=== PATIENT | female | born 1965 | race Caucasian/White ===

== ENCOUNTER 2016-08-30 16:06 | Inpatient (IN) | payer MEDICARE ==
--- NOTE | ~2016-08-30 | EKG ---
PATIENT: MIKE LOU UNIT #: [id number] Ventricular Rate: 73 BPM Atrial Rate: 73 BPM P-R Interval: 160 ms QRS Duration: 100 ms Q-T Interval: 396 ms QTC Calculation(Bezet): 436 ms P Durham: 49 degrees Calculated R Durham: 87 degrees Calculated T Durham: 37 degrees Diagnosis Line: Normal sinus rhythm Diagnosis Line: Normal ECG Diagnosis Line: When compared with ECG of 03-AUG-2013 01:37, Diagnosis Line: No significant change was found Diagnosis Line: Confirmed by DION CHOUDHURY MD ([id number]) on 08/31/2016 Diagnosis Line: 8:01:45 PM INTERPRETING MD: MACEY PETER
--- NOTE | ~2016-08-30 | CT57 ---
[facility] A Service of [facility] RADIOLOGY TEXT RESULTS PATIENT: MIKE LOU LOCATION: [facility] 5711-18 : 66 UNIT #: [id number] AGE: [address]: Dariusz Torres MD SEX: F ORDER DR: [id number] [facility] [address] [facility]. [place], [place] [address] [id number] I MR#: [id number] #: [id number] NAME: MIKE LOU : 1965 SEX: F STUDY DATE/TIME: 08/31/2016 17:29 UNIT: [facility] ROOM: [facility] STUDY DESCRIPTION: CT Chest Wo Cont Attending Physician: Dariusz Torres M.D. Referring Physician: Dariusz Torres M.D. Ordering Physician: Dariusz Torres M.D. Primary Care Physician: Hilario Cintron M.D. MEDICAL IMAGING REPORT This report is preliminary unless electronic signature is present EXAM CT chest without contrast HISTORY 51-year-old female, shortness of air, dyspnea, hemoptysis. History of COPD. COMPARISON CT chest without contrast 08/27/2014 TECHNIQUE Axial images performed through the chest without contrast. Multiplanar reconstructed images were reviewed at a workstation. This CT exam was performed with one or more of the following radiation dose reduction techniques: automatic exposure control, adjustment of mA and/or kV according to patient size, and iterative reconstruction. FINDINGS The pulmonary parenchyma is normal. No effusions. Incidentally noted is an azygos lobe and azygos fissure. Calcified mediastinal nodes compatible with prior granulomas disease. Heart, aorta and pulmonary vessels unremarkable in this unenhanced study. Diffuse fatty infiltration of the liver. Osseous structures thoracic inlet unremarkable. Generalized obesity. IMPRESSION 1. No acute intrathoracic abnormality identified. 2. Diffuse fatty infiltration of the liver. 3. Incidental azygos lobe. Dictated by.Carlie Arias M.D. [facility] A Service of [facility] RADIOLOGY TEXT RESULTS PATIENT: MIKE LOU LOCATION: [facility] 5711-18 : 66 UNIT #: [id number] AGE: [address]: Dariusz Torres MD SEX: F ORDER DR: THIS IS AN ELECTRONICALLY VERIFIED REPORT Nikkie Arias M.D. at 09/01/2016 6:36 PM WENDIE/chip TD: 08/31/2016 22:13 JOB #: [id number] MEDICAL IMAGING REPORT Page 1 of 1 COPY
--- NOTE | ~2016-08-30 | CO ---
Unit #: [id number] #: [id number] Patient: MIKE LOU [id number] [address] [place], [place] [address] [id number] I MR#: [id number] NAME: MIKE LOU ROOM: 577 Age: 51 Sex: F Admission Date: 08/30/2016 : 1965 Attending Physician: Dariusz Torres M.D. Primary Care Physician: Hilario Cintron M.D. Consultation Date: 08/31/2016 CONSULTATION REPORT REASON FOR CONSULTATION Uncontrolled type 2 diabetes mellitus complicated with steroids. HISTORY OF PRESENT ILLNESS This is a 51-year-old female with history of COPD, chronic respiratory failure, history of tobacco use, has been admitted with the acute respiratory failure. Due to the COPD exacerbation, the patient has been treated with the IV steroids. Her blood sugars at some point were about 700 mg/dL or above 700. I have been asked to see the patient for further management. Note, the patient is insulin dependent. PAST MEDICAL HISTORY Chronic respiratory failure, COPD, depression, hypertension, hyperlipidemia, PTSD, obstructive sleep apnea. The patient uses BiPAP. MEDICATIONS List is reviewed. The patient was on Humalog 30 units in the morning plus sliding scale and Lantus 140 units daily, Januvia 100 mg daily. ALLERGIES To oxycodone, which caused her itching. SOCIAL HISTORY She smokes about half pack per day. Lives at home. FAMILY HISTORY COPD. REVIEW OF SYSTEMS A 12-point review of systems remarkable for shortness of air, wheezing, cough. Rest of the review of system is unremarkable. PHYSICAL EXAMINATION GENERAL: She is awake, alert, oriented to time, place, and person. She is mildly short of air. VITAL SIGNS: Temperature 98, pulse is 76, respirations 18, blood pressure 95/40. HEENT: EOMI. Pupils equally reactive to light. NECK: Supple. No thyromegaly noted. CHEST: Decreased air entry with bilateral wheezing. CVS: Regular rhythm. S1, S2. ABDOMEN: Soft, nontender. Bowel sounds positive. EXTREMITIES: No ulcers are noted. Unit #: [id number] #: [id number] Patient: MIKE LOU DIAGNOSTIC STUDIES LABORATORY RESULTS: Blood glucose log was reviewed. It has been running above 500 mg/dL. Labs are reviewed. ASSESSMENT 1. Type 2 diabetes mellitus with acute hyperglycemia secondary to the IV steroids. 2. Acute on chronic respiratory failure. 3. Morbid obesity. PLAN We will discontinue Levemir insulin and start the patient on Humulin N 80 units before each meal, Solu-Medrol dose. Start NovoLog 25 units each meal plus high dose supplement sliding scale. Accu-Cheks a.c. and h.s. Limit carbs to 45 per meal. Continue to follow for further management. Dictated by... Justine Capps/tae TD: 09/02/2016 05:12 JOB #: [id number] CONSULTATION REPORT Page 1 of 1 X Domingo Kelley MD X CONSULTATION REPORT
--- NOTE | ~2016-08-30 | CR72 ---
[facility] A Service of [facility] RADIOLOGY TEXT RESULTS PATIENT: MIKE LOU LOCATION: [facility] 577-01 : 66 UNIT #: [id number] AGE: [address]: Dariusz Torres MD SEX: F ORDER DR: [id number] [facility] [address]. [place], [place] [address] [id number] E MR#: [id number] Acc #: [id number] NAME: MIKE LOU : 1965 SEX: F STUDY DATE/TIME: 08/30/2016 15:39 UNIT: LULA ROOM: STUDY DESCRIPTION: CR Chest Single View Portable Attending Physician: Sana Jovel M.D. Referring Physician: Dariusz Torres M.D. Ordering Physician: Sana Jovel M.D. Primary Care Physician: Hilario Cintron M.D. MEDICAL IMAGING REPORT This report is preliminary unless electronic signature is present EXAM Portable chest 08/30/2016 HISTORY Shortness of air for 2 weeks which is worse today. COMPARISON 08/27/2014 FINDINGS A portable view of the chest was obtained. The heart size and vascularity are normal. The lungs are clear and the bones are unremarkable. IMPRESSION No active disease. Dictated by... Bayron Canada M.D. THIS IS AN ELECTRONICALLY VERIFIED REPORT Bayron Canada M.D. at 08/31/2016 8:21 AM XAVIER/fabrice TD: 08/30/2016 16:53 JOB #: [id number] MEDICAL IMAGING REPORT Page 1 of 1 COPY
--- NOTE | ~2016-08-30 | DS ---
Unit #: [id number] #: [id number] Patient: MIKE VASQUEZ [id number] [address] [place], [place] [address] [id number] I MR#: [id number] NAME: MIKE VASQUEZ ROOM: 577 Age: 51 Sex: F Admission Date: 08/30/2016 : 1965 Discharge Date: 09/03/2016 Attending Physician: Dariusz Torres M.D. Referring Physician: Dariusz Torres M.D. Primary Care Physician: Hilario Cintron M.D. DISCHARGE SUMMARY FINAL DIAGNOSES 1. Acute exacerbation of chronic obstructive pulmonary disease. 2. Acute on chronic respiratory failure. 3. Severe hyperglycemia because of steroid use. 4. Diabetes mellitus type 2. 5. Fatty liver disease. 6. Anxiety syndrome. 7. Probable posttraumatic stress disorder. 8. Hemoptysis. CONSULTANTS 1. Dr. Kelley. 2. Dr. Morgan. PROCEDURES CT chest. HISTORY Ms. Vasquez is a 51-year-old female seen by nurse practitioner and thought to have an exacerbation of COPD. She felt like she needed to be admitted. In order for that to happen, she had to go to the emergency room. This was done and she was started on IV steroids. She improved over the next couple of days but her sugars were very high. I asked Dr. Kelley to see her and he adjusted her insulin. Because of anxiety issues and possible PTSD, I asked Dr. Morgan to see her. He adjusted her medicines. As of 09/03/2016, she is doing better and ready for discharge. MEDICATIONS She will go home on the following medicines: 1. Symbicort 160/4.5, two puffs b.i.d. 2. Albuterol mini nebs q.i.d. although it should be p.r.n. 3. Zofran 4 mg q.6 p.r.n. 4. Spiriva one capsule inhaled daily. 5. Prednisone 30 mg p.o. daily, decreasing by 10 mg every three days. 6. Neurontin 600 mg p.o. t.i.d. 7. Topiramate 50 mg p.o. b.i.d. 8. Amitriptyline 25 mg p.o. at bedtime. 9. Zoloft 200 mg p.o. daily. 10. Desyrel 50 mg q. h.s. p.r.n. 11. Januvia 100 mg daily. 12. Tessalon Perles t.i.d. p.r.n. 13. Hydroxyzine 50 mg p.o. t.i.d. 14. Risperdal 1 mg p.o. t.i.d. 15. Klonopin 0.5 mg b.i.d. Unit #: [id number] #: [id number] Patient: MIKE VASQUEZ 16. O2 3 L nasal cannula. 17. Lasix 40 mg p.o. daily. 18. Tussin or Mucinex p.r.n. cough. 19. Lisinopril 5 mg p.o. daily. 20. Insulin lispro 30 units every a.m. as needed. 21. Lantus insulin 140 mg subcu daily. 22. Phil-Time one p.o. daily. 23. She may continue NPH [address] Kelley. However, she also may instead use Novolin 30 units subcu t.i.d. I will leave that to him. She may continue hydrocodone 7.5 q.6 but I did not write it since that is a home medicine. 24. Omeprazole 20 mg p.o. b.i.d. 25. Accolate 20 mg p.o. b.i.d. 26. Flexeril 10 mg p.o. t.i.d. 27. Vitamin D 2000 units p.o. daily. 28. Cefdinir 300 mg p.o. b.i.d. for three days. She is to follow up in our office in about three weeks. Activity will be as tolerated. She is to follow with Dr. Cintron too. Dictated by... Dariusz Torres M.D. JAME/scottie TD: 09/05/2016 07:39 JOB #: [id number] DISCHARGE SUMMARY Page 1 of 1 X Dariusz Torres MD X DISCHARGE SUMMARY
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
--- NOTE | ~2016-08-30 | CO ---
Unit #: [id number] #: [id number] Patient: DAIJA VASQUEZ [id number] [facility] [address] [facility]. [place], [place] [address] [id number] I MR#: [id number] NAME: DAIJA VASQUEZ ROOM: 577 Age: 51 Sex: F Admission Date: 08/30/2016 : 1965 Attending Physician: Dariusz Torres M.D. Primary Care Physician: Hilario Cintron M.D. Consultation Date: 09/01/2016 CONSULTATION REPORT REASON FOR CONSULTATION Followup. DISCUSSION Ms. Daija Vasquez is a 51-year-old female, seen in room 577, bed 1 at [facility] on 09/01/2016. The patient was dressed casually, receiving oxygen through nasal cannula. Withdrawn, isolative, flat affect, sad, dysphoric. Reports that she was able to sleep somewhat better. Still having lot of problem with the anxiety. Denied any suicidal or homicidal ideation. REVIEW OF SYSTEMS Complete review of systems is remarkable for shortness of air, anxiety. MENTAL STATUS EXAMINATION General appearance; the patient dressed casually, moderately obese. Attention span and concentration, fair. Speech, slow. Oriented in place and self. Mood and affect; sad and dysphoric. Thought process, circumstantial. Thought content; guarded, paranoid, but denied any thoughts of harming self or others. Recent and remote memory, fair. Language, fair. Fund of knowledge, impaired. Insight and judgment, fair to slightly impaired. DIAGNOSES Major depressive disorder, recurrent, severe, F33.2; agoraphobia with panic disorder, F40.01. ASSESSMENT/PLAN 1. Supportive psychotherapy and psychoeducation provided to the patient. 2. Educated about benefits and side effects of medication and course and prognosis of illness. 3. Continue with current treatment. If needed, consider further adjustment of medication. Dictated by... Tristan Morgan M.D. SAHRA/tae TD: 09/02/2016 06:03 JOB #: [id number] Unit #: [id number] #: [id number] Patient: DAIJA VASQUEZ CONSULTATION REPORT Page 1 of 1 X Tristan Morgan MD X CONSULTATION REPORT
--- NOTE | ~2016-08-30 | CO ---
Unit #: [id number] #: [id number] Patient: DAIJA VASQUEZ [id number] [facility] [address] [facility]. [place], [place] [address] [id number] I MR#: [id number] NAME: DAIJA VASQUEZ ROOM: 577 Age: 51 Sex: F Admission Date: 08/30/2016 : 1965 Attending Physician: Dariusz Torres M.D. Primary Care Physician: Hilario Cintron M.D. Consultation Date: 08/31/2016 CONSULTATION REPORT DATE OF SERVICE 08/31/2016. REASON FOR CONSULTATION Depression, anxiety, trouble sleeping, history of depression. HISTORY OF PRESENT ILLNESS Ms. Daija Vasquez is a 51-year-old white female, seen in room 570 on 08/31/2016 at [facility]. The patient was admitted due to COPD exacerbation, on 4 L of oxygen cannula. The patient has a history of depression and anxiety. The patient reported having trouble sleeping, severe anxiety. Currently, medications are not working. The patient reports she takes Neurontin 1200 mg t.i.d., Zoloft, Topamax. The patient currently denied any suicidal or homicidal ideation. Denied any psychotic symptom, but somewhat guarded and paranoid. No history of any substance abuse. PAST PSYCHIATRIC HISTORY Remarkable for history of depression and anxiety. MEDICAL HISTORY Remarkable for history of COPD, on oxygen; history of possible liver problems; diabetes mellitus; depression; hypertension; hyperlipidemia; migraine headache; macular degeneration; obstructive sleep apnea. MEDICATIONS The patient is on Neurontin 1200 mg t.i.d., Mucinex, Zoloft 200 mg daily, Topamax 50 mg b.i.d., Tussin, omeprazole, Flexeril, potassium, Phil-Time, Tessalon, lisinopril, Lipitor, Zofran, hydroxyzine, Lorcet, Lasix, vitamin D, Symbicort, Spiriva, Lantus, Humalog, oxygen 4 L nasal cannula, Klonopin 0.5 mg b.i.d., Januvia. ALLERGIES To oxycodone. FAMILY HISTORY AND SOCIAL HISTORY The patient has a poor support. No history of any abuse. No history of any substance abuse. REVIEW OF SYSTEMS Complete review of systems is remarkable for shortness of air, anxiety, restlessness, paranoia. MENTAL STATUS EXAMINATION Unit #: [id number] #: [id number] Patient: DAIJA VASQUEZ Vital signs; temperature 98.0, pulse 69, respiratory rate 18, blood pressure 120/45, oxygen saturation 96%. General appearance, the patient is moderately obese, dressed casually, receiving oxygen through the nasal cannula. Attention span and concentration, fair. Speech, rapid. Oriented in place and person. Mood and affect, labile. Thought process, circumstantial. Thought content, guarded, paranoid, severe anxiety, depression, but denied any suicidal or homicidal ideation. Recent and remote memory, poor. Language, fair. Fund of knowledge, fair. Insight and judgment, impaired. DIAGNOSES Psychiatric: Major depressive disorder, recurrent, severe, F33.2; agoraphobia with panic disorder, F40.01. Secondary diagnosis: Deferred. Medical diagnosis: Please refer to H and P. Stressors: Psychosocial stressors. ASSESSMENT/PLAN 1. Supportive psychotherapy and psychoeducation provided to the patient. 2. Educated about benefits and side effects of medication and course and prognosis of illness. 3. Advised to consider cutting back on the dosage of Neurontin to 600 mg t.i.d. Advised to add Risperdal 1 mg t.i.d. to help with the psychotic symptom, which could be because of the patient being on Solu-Medrol and advised Vistaril 50 mg t.i.d. for anxiety. Continue with current medication. We will continue to follow. Please feel free to call if any questions, telephone # . Dictated by... Justine Deleon/tae TD: 09/02/2016 06:19 JOB #: [id number] CONSULTATION REPORT Page 1 of 1 X Tristan Morgan MD CONSULTATION REPORT
[2016-08-30 16:00] LABS: BASOPHIL% 0.4 % (0-2.5); EOSINOPHIL# 0.1 X10e3 (0-0.7); EOSINOPHIL% 2.6 % (0.0-7.0); HEMATOCRIT 47.8 % (35.0-45.0); HEMOGLOBIN 15.3 gm/dL (12.0-16.0); LYMPHOCYTE# 1.9 X10e3 (1.0-3.5); LYMPHOCYTE% 33.8 % (17.0-45.0); MEAN CELL VOLUME 92.5 FL (83-96); MEAN CORPUSCULAR HEMOGLOBIN 29.6 PG (28-34); MEAN PLATELET VOLUME 9.7 FL (6.5-11.5); MONOCYTE# 0.4 X10e3 (0-1.0); MONOCYTE% 7.1 % (3.0-12.0); NEUTROPHIL# 3.2 X10e3 (1.5-7.1); NEUTROPHIL% 56.1 % (40-75); PLATELET COUNT 126 X10e3 (140-420); RED BLOOD COUNT 5.17 X10e (3.90-5.30); RED CELL DISTRIBUTION WIDTH 14.3 % (11.0-15.5); WHITE BLOOD COUNT 5.7 X10e3 (4.0-10.5)
[2016-08-30 16:02] LABS: DIFF IND NO
[~2016-08-30 16:06] MED LIST: ACCOLATE20 MG PO; ADVAIR 2501 DISK W/D PO; ADVAIR 500-501 EACH IH; ADVAIR DISKU1 250/50 INH; ALBUTEROL 0.5ML INH; ALBUTEROL MININEB NEB; ALBUTEROL17 G1 IH; ALBUTEROL17 GM INH; ALBUTEROL2.5 MG/0.5 IH; ALPRAZOLAM0.5 MG PO; AMOXICILLIN PO; ATORVASTATIN CA20 MG PO; BENADRYL PO; BENZONATATE200 MG PO; BIPAP; BUDEPRION XL300 MG PO; CITALOPRAM HBR40 MG PO; COLACE PO; DOXYCYCLINE HY100 M1 PO; DOXYCYCLINE PO; DOXYCYCLINE150 MG PO; FLAGYL PO; FLEXERIL10 MG PO; FUROSEMIDE40 MG PO; GABAPENTIN300 MG PO; GABAPENTIN400 M2 PO; GABAPENTIN600 MG PO; GLUCOPHAGE500 MG PO; GLUMETZA1000 MG/BO PO; GUAIFENESIN600 M1 PO; GUAIFENESIN600 M2 PO; HUMALOG100 U/ML; HUMALOG100 U/ML SUBQ; HYCODAN60 ML 5MG/ PO; HYDROCODON-ACE1 EAC1 PO; HYDROCODONE-APA1 T45 PO; HYDROCODONE/APA1 T16 PO; HYDROXYZINE PAM25 MG PO; IBUPROFEN600 MG PO; INVOKANA300 MG PO; JANUVIA PO; K-DUR20 ME1 PO; K-LOR20 MEQ PO; LANTUS100 U/ML SUBQ; LANTUS100 UNITS/ SUBQ; LASIX PO; LEVAQUIN PO; LIPITOR20 MG PO; LISINOPRIL5 MG PO; LORTAB 7.5-5001 TAB PO; LYRICA100 MG PO; MEDROL PO; METFORMIN HCL500 M1 PO; MINIPRESS1 MG PO; MUCUS RELIEF600 MG PO; NAPROSYN375 MG PO; NASONEX17 GM; NICOTINE TRANSD14 MG EXT; NICOTINE TRANSD21 MG EXT; NORVASC10 MG PO; NOVOLOG100 U/ML SUBQ; OMEPRAZOLE20 M2 PO; OMEPRAZOLE40 MG PO; PEPCID AC20 MG PO; PERCOCET PO; PHENERGAN PO; PHENERGAN25 M1 PO; PHENERGAN25 MG PO; POTASSIUM99 M2 PO; PREDNISONE PO; PREDNISONE10 MG PO; PRILOSEC20 MG PO; REMERON15 MG; REMERON15 MG PO; SERTRALINE HCL100 MG PO; SPIRIVA18 MCG INH; SYMBICORT INH; TESSALON PERLE100 M1 PO; TESSALON200 MG PO; WELLBUTRIN PO; XANAX0.5 MG PO; Z-CLINZ 10 PAC1 EA PO; ZANAFLEX4 M1 PO; ZANTAC PO; ZINC50 M1 PO; ZITHROMAX PO; ZOLOFT100 MG PO; [UNRECOGNIZED DRUG - OTHER]
[2016-08-30 16:15] LABS: POC - CKMB <1.0 ng/mL (0.0-7.9); POC - TROPONIN <0.05 ng/mL (<=0.05)
[2016-08-30 16:16] LABS: PROTHROMBIN TIME (PATIENT) 10.9 SECONDS (9.6-11.5)
[2016-08-30 16:23] LABS: CALCIUM SERUM 8.9 mg/dL (8.4-10.2); CREATININE SERUM 0.9 mg/dL (0.6-1.4); GLOM FILT RATE Estimated 74.6 mL/min (>60); POTASSIUM 4.2 mmol/L (3.5-5.1)
[2016-08-30 17:54] LABS: POC - CKMB <1.0 ng/mL (0.0-7.9); POC - TROPONIN <0.05 ng/mL (<=0.05)
[2016-08-30] MEDS ORDERED: NEURONTIN600 MG PO (18:36)
[2016-08-30] MEDS ORDERED: MUCINEX D ER T1 EAC1 PO (18:36)
[2016-08-30] MEDS ORDERED: ZOLOFT100 MG PO (18:38)
[2016-08-30] MEDS ORDERED: OMEPRAZOLE20 M1 PO (18:39)
[2016-08-30] MEDS ORDERED: TOPIRAMATE ER50 MG PO (18:39)
[2016-08-30] MEDS ORDERED: TUSSIN100 MG/51 PO (18:39)
[2016-08-30] MEDS ORDERED: AMITRIPTYLINE H25 MG PO (18:40)
[2016-08-30] MEDS ORDERED: FLEXERIL10 MG PO (18:40)
[2016-08-30] MEDS ORDERED: FERRO-TIME325 MG PO (18:41)
[2016-08-30] MEDS ORDERED: K-DUR20 ME1 PO (18:41)
[2016-08-30] MEDS ORDERED: LISINOPRIL5 MG PO (18:42)
[2016-08-30] MEDS ORDERED: TESSALON PERLE100 M1 PO (18:42)
[2016-08-30] MEDS ORDERED: ZOFRAN ODT4 M1 SL (18:43)
[2016-08-30] MEDS ORDERED: LIPITOR20 MG PO (18:43)
[2016-08-30] MEDS ORDERED: HYDROXYZINE HCL25 M1 PO (18:44)
[2016-08-30] MEDS ORDERED: FUROSEMIDE40 MG PO (18:45)
[2016-08-30] MEDS ORDERED: LORCET PLUS 7.1 EACH PO (18:45)
[2016-08-30] MEDS ORDERED: VITAMIN D2000 UNIT PO (18:46)
[2016-08-30] MEDS ORDERED: SYMBICORT INH (18:48)
[2016-08-30] MEDS ORDERED: LANTUS100 U/ML SUBQ (18:49)
[2016-08-30] MEDS ORDERED: SPIRIVA18 MCG INH (18:49)
[2016-08-30] MEDS ORDERED: HUMALOG100 UNIT/1 SUBQ (18:50)
[2016-08-30] MEDS ORDERED: HUMALOG100 UNIT/2 (18:50)
[2016-08-30] MEDS ORDERED: KLONOPIN0.5 MG PO (18:51)
[2016-08-30] MEDS ORDERED: OXYGEN (18:51)
[2016-08-30] MEDS ORDERED: ACCOLATE20 MG PO (18:58)
[2016-08-30] MEDS ORDERED: JANUVIA PO (19:04)
[2016-08-31 07:06] LABS: BUN/CREATININE RATIO 15.55; CALCIUM SERUM 9.5 mg/dL (8.4-10.2); CREATININE SERUM 0.9 mg/dL (0.6-1.4); GLOM FILT RATE Estimated 74.6 mL/min (>60); POTASSIUM 5.3 mmol/L (3.5-5.1)
[2016-09-01 08:23] LABS: ALBUMIN SERUM 3.4 g/dL (3.5-5.0); BILIRUBIN, DIRECT 0.1 mg/dL (0.0-0.2); BILIRUBIN,INDIRECT 0.3 mg/dL (0.0-0.9); BILIRUBIN,TOTAL 0.4 mg/dL (0.2-2.0); BUN/CREATININE RATIO 24.28; CALCIUM SERUM 9.1 mg/dL (8.4-10.2); CREATININE SERUM 0.7 mg/dL (0.6-1.4); POTASSIUM 4.4 mmol/L (3.5-5.1); PROTEIN TOTAL SERUM 6.4 g/dL (6.0-8.3)
[2016-09-02 05:40] LABS: HEMATOCRIT 44.4 % (35.0-45.0); HEMOGLOBIN 14.4 gm/dL (12.0-16.0); MEAN CELL VOLUME 91.6 FL (83-96); MEAN CORPUSCULAR HEMOGLOBIN 29.7 PG (28-34); MEAN CORPUSCULAR HGB CONC 32.4 g/dL (30-36); MEAN PLATELET VOLUME 9.7 FL (6.5-11.5); RED BLOOD COUNT 4.84 X10e (3.90-5.30); RED CELL DISTRIBUTION WIDTH 14.6 % (11.0-15.5); WHITE BLOOD COUNT 10.3 X10e3 (4.0-10.5)
[2016-09-02 06:58] LABS: BUN/CREATININE RATIO 28.57; CALCIUM SERUM 8.7 mg/dL (8.4-10.2); CREATININE SERUM 0.7 mg/dL (0.6-1.4); PHOSPHOROUS 3.3 mg/dL (2.5-4.6)
[2016-09-03] MEDS ORDERED: DESYREL50 MG PO (06:51)
[2016-09-03] MEDS ORDERED: RISPERDAL1 M1 PO ×2 (06:53→14:54)
[2016-09-03] MEDS ORDERED: NICOTINE TRANSD14 MG TOP (06:54)
[2016-09-03] MEDS ORDERED: PREDNISONE PO (07:02)
[2016-09-03] MEDS ORDERED: CEFDINIR300 M2 PO (07:02)
[2016-09-03] MEDS ORDERED: PREDNISONE10 MG PO (14:52)
[2016-09-03] MEDS ORDERED: OMNICEF300 MG PO (14:53)
== END 2016-09-03 17:06 | disposition home or self-care (01) | DRG 190 ==
LOC: CED 16:06 → CEDOF 17:45 → C5C 08-31 01:50
PROVIDERS: Emergency Medicine; Internal Medicine Pulmonary Disease
DX: J44.1 Chronic obstructive pulmonary disease with (acute) exacerbation (principal); J96.20 Acute and chronic respiratory failure, unspecified whether with hypoxia or hypercapnia; K76.0 Fatty (change of) liver, not elsewhere classified; F33.2 Major depressive disorder, recurrent severe without psychotic features; R04.2 Hemoptysis; E11.65 Type 2 diabetes mellitus with hyperglycemia; R41.9 Unspecified symptoms and signs involving cognitive functions and awareness; F43.10 Post-traumatic stress disorder, unspecified; Z79.4 Long term (current) use of insulin; G47.33 Obstructive sleep apnea (adult) (pediatric); F17.210 Nicotine dependence, cigarettes, uncomplicated; E66.01 Morbid (severe) obesity due to excess calories; H35.30 Unspecified macular degeneration; Z88.5 Allergy status to narcotic agent; F40.01 Agoraphobia with panic disorder; T38.0X5A Adverse effect of glucocorticoids and synthetic analogues, initial encounter; Z68.38 Body mass index [BMI] 38.0-38.9, adult; E87.5 Hyperkalemia
CPT/HCPCS: 71010; 71250; 80048; 80076; 82553; 82947; 83735; 83880; 84100; 84484; 85025; 85027; 85379; 85610; 87633; 93005; 94640; 94664; 94760; 96374; 99291; J0696; J1650; J1815; J2920; J2930

== ENCOUNTER 2016-09-29 13:33 | Emergency (ER) | payer MEDICARE ==
--- NOTE | ~2016-09-29 | EKG ---
PATIENT: MIKE LOU UNIT #: [id number] Ventricular Rate: 95 BPM Atrial Rate: 95 BPM P-R Interval: 142 ms QRS Duration: 96 ms Q-T Interval: 342 ms QTC Calculation(Bezet): 429 ms P [place]: 46 degrees Calculated R [place]: 75 degrees Calculated T [place]: 22 degrees Diagnosis Line: Normal sinus rhythm Diagnosis Line: Normal ECG Diagnosis Line: When compared with ECG of 30-AUG-2016 15:40, Diagnosis Line: No significant change was found Diagnosis Line: Confirmed by CANDIS LÓEPZ MD ([id number]) on 09/29/2016 Diagnosis Line: 8:12:23 PM INTERPRETING MD: MARIBEL PETER
--- NOTE | ~2016-09-29 | CR72 ---
[facility] A Service of [facility] RADIOLOGY TEXT RESULTS PATIENT: MIKE LOU LOCATION: [facility] : 67 UNIT #: [id number] AGE: [address]: Cj Roberts MD SEX: F ORDER DR: [id number] [facility] [address] [place], [place] [address] [id number] MR#: [id number] Acc #: [id number] NAME: MIKE LOU : 1965 SEX: F STUDY DATE/TIME: 09/29/2016 14:11 UNIT: [facility] ROOM: STUDY DESCRIPTION: CR Chest Single View Portable Attending Physician: Cj Roberts M.D. Ordering Physician: Cj Roberts M.D. Primary Care Physician: Hilario Cintron M.D. MEDICAL IMAGING REPORT This report is preliminary unless electronic signature is present EXAM Chest, portable. DATE OF EXAM 09/29/2016, 1411 hours. CLINICAL HISTORY 51-year-old woman with 3-day history of fever, shortness of air, chest and back pain. History of hypertension and diabetes. COMPARISON Chest x-ray, 08/30/[address] 08/31/2016. FINDINGS Portable upright chest demonstrates slightly lower lung volumes than on the prior study. The cardiac, mediastinal and hilar contours are normal. There are benign calcified granulomatous changes. There is an azygos fissure which is a normal variant. There is patchy density in the right midlung, right lung base new from the prior studies concerning for infection. IMPRESSION Slightly lower lung volumes with new patchy airspace density in the right midlung and right lung base concerning for pneumonia. The left lung is clear and there are no effusions. Dictated by... Diana Durant M.D. THIS IS AN ELECTRONICALLY VERIFIED REPORT Diana Durant M.D. at 10/02/2016 9:01 AM JOSEM/jt [facility] A Service of [facility] RADIOLOGY TEXT RESULTS PATIENT: MIKE LOU [id number] : [birth year] UNIT #: [id number] AGE: [address]: Cj Roberts MD SEX: F ORDER DR: TD: 09/29/2016 17:50 JOB #: [id number] MEDICAL IMAGING REPORT Page 1 of 1 COPY
[~2016-09-29 13:33] MED LIST changes: +AMITRIPTYLINE H25 MG PO; +CEFDINIR300 M2 PO; +DESYREL50 MG PO; +FERRO-TIME325 MG PO; +HUMALOG100 UNIT/1 SUBQ; +HUMALOG100 UNIT/2; +HYDROXYZINE HCL25 M1 PO; +KLONOPIN0.5 MG PO; +LORCET PLUS 7.1 EACH PO; +MUCINEX D ER T1 EAC1 PO; +NEURONTIN600 MG PO; +NICOTINE TRANSD14 MG TOP; +OMEPRAZOLE20 M1 PO; +OMNICEF300 MG PO; +OXYGEN; +RISPERDAL1 M1 PO; +TOPIRAMATE ER50 MG PO; +TUSSIN100 MG/51 PO; +VITAMIN D2000 UNIT PO; +ZOFRAN ODT4 M1 SL
[2016-09-29 14:18] LABS: POC - CKMB <1.0 ng/mL (0.0-7.9); POC - TROPONIN <0.05 ng/mL (<=0.05)
[2016-09-29 14:37] LABS: BASOPHIL% 0.3 % (0-2.5); DIFF IND YES; EOSINOPHIL# 0.1 X10e3 (0-0.7); EOSINOPHIL% 0.3 % (0.0-7.0); HEMATOCRIT 46.6 % (35.0-45.0); HEMOGLOBIN 15.4 gm/dL (12.0-16.0); LYMPHOCYTE# 1.4 X10e3 (1.0-3.5); LYMPHOCYTE% 7.2 % (17.0-45.0); MEAN CELL VOLUME 89.4 FL (83-96); MEAN CORPUSCULAR HEMOGLOBIN 29.5 PG (28-34); MEAN PLATELET VOLUME 9.8 FL (6.5-11.5); MONOCYTE# 1.4 X10e3 (0-1.0); MONOCYTE% 7.2 % (3.0-12.0); NEUTROPHIL# 16.1 X10e3 (1.5-7.1); PLATELET COUNT 169 X10e3 (140-420); RED BLOOD COUNT 5.22 X10e (3.90-5.30); RED CELL DISTRIBUTION WIDTH 14.5 % (11.0-15.5); WHITE BLOOD COUNT 18.9 X10e3 (4.0-10.5)
[2016-09-29 14:41] LABS: BUN/CREATININE RATIO 7.77; CALCIUM SERUM 8.5 mg/dL (8.4-10.2); CREATININE SERUM 0.9 mg/dL (0.6-1.4); GLOM FILT RATE Estimated 74.6 mL/min (>60)
[2016-09-29 14:48] LABS: PLATELET ESTIMATE NORMAL (NORMAL); RBC NORMAL YES
== END 2016-09-29 16:00 | disposition home or self-care (01) ==
LOC: CED 13:33
PROVIDERS: Emergency Medicine
DX: J84.9 Interstitial pulmonary disease, unspecified (principal); E87.1 Hypo-osmolality and hyponatremia; J44.9 Chronic obstructive pulmonary disease, unspecified; E11.65 Type 2 diabetes mellitus with hyperglycemia; F41.9 Anxiety disorder, unspecified; F43.10 Post-traumatic stress disorder, unspecified; Z87.891 Personal history of nicotine dependence; Z79.899 Other long term (current) drug therapy; Z88.8 Allergy status to other drugs, medicaments and biological substances
CPT/HCPCS: 71010; 80048; 82553; 82947; 83880; 84484; 85025; 93005; 94640; 99283; J0456

== ENCOUNTER 2016-12-01 23:08 | Emergency (ER) | payer MEDICARE ==
--- NOTE | ~2016-12-01 | EKG ---
PATIENT: MIKE LOU UNIT #: [id number] Ventricular Rate: 90 BPM Atrial Rate: 90 BPM P-R Interval: 134 ms QRS Duration: 94 ms Q-T Interval: 372 ms QTC Calculation(Bezet): 455 ms P [place]: 56 degrees Calculated R [place]: 84 degrees Calculated T [place]: 32 degrees Diagnosis Line: Normal sinus rhythm Diagnosis Line: Possible Left atrial enlargement Diagnosis Line: Borderline ECG Diagnosis Line: When compared with ECG of 29-SEP-2016 14:30, Diagnosis Line: No significant change was found Diagnosis Line: Confirmed by LATASHA QUISPE MD ([id number]) on Diagnosis Line: 12/02/2016 2:01:27 PM INTERPRETING MD: BRITTANEY PETER
--- NOTE | ~2016-12-01 | CR72 ---
[facility] A Service of [facility] RADIOLOGY TEXT RESULTS PATIENT: MIKE LOU LOCATION: [facility] : 67 UNIT #: [id number] AGE: [address]: Ian Washington MD SEX: F ORDER DR: [id number] [facility] [address] [place], [place] [address] [id number] MR#: [id number] Acc #: [id number] NAME: MIKE LOU : 1965 SEX: F STUDY DATE/TIME: 12/02/2016 0:00 UNIT: [facility] ROOM: STUDY DESCRIPTION: CR Chest Single View Portable Attending Physician: Ian Washington M.D. Ordering Physician: Ed Doctor [id number] [facility] Primary Care Physician: Hilario Cintron M.D. MEDICAL IMAGING REPORT This report is preliminary unless electronic signature is present EXAM Portable chest INDICATIONS Shortness of air and cough for the past 5 days. PROCEDURE Frontal view chest. COMPARISON 09/29/2016 FINDINGS Heart size is normal. No dense consolidation pleural fluid or pneumothorax. IMPRESSION No active process Dictated by... El Agosto M.D. THIS IS AN ELECTRONICALLY VERIFIED REPORT El Agosto M.D. at 12/02/2016 9:55 PM EED/fabrice TD: 12/02/2016 05:46 JOB #: [id number] MEDICAL IMAGING REPORT Page 1 of 1 COPY
[2016-12-02 00:20] LABS: BASOPHIL% 0.4 % (0-2.5); EOSINOPHIL# 0.2 X10e3 (0-0.7); EOSINOPHIL% 1.5 % (0.0-7.0); HEMATOCRIT 48.7 % (35.0-45.0); HEMOGLOBIN 16.2 gm/dL (12.0-16.0); LYMPHOCYTE# 2.6 X10e3 (1.0-3.5); LYMPHOCYTE% 23.4 % (17.0-45.0); MEAN CELL VOLUME 90.8 FL (83-96); MEAN CORPUSCULAR HEMOGLOBIN 30.2 PG (28-34); MEAN CORPUSCULAR HGB CONC 33.2 g/dL (30-36); MEAN PLATELET VOLUME 9.3 FL (6.5-11.5); MONOCYTE# 0.8 X10e3 (0-1.0); NEUTROPHIL# 7.6 X10e3 (1.5-7.1); NEUTROPHIL% 67.7 % (40-75); PLATELET COUNT 189 X10e3 (140-420); RED BLOOD COUNT 5.36 X10e (3.90-5.30); RED CELL DISTRIBUTION WIDTH 14.8 % (11.0-15.5); WHITE BLOOD COUNT 11.3 X10e3 (4.0-10.5)
[2016-12-02 00:24] LABS: DIFF IND NO
[2016-12-02 00:37] LABS: INR 1.1; PARTIAL THROMBOPLASTIN TIME 28.9 SECONDS (23.5-31.3); PROTHROMBIN TIME (PATIENT) 11.5 SECONDS (10.0-11.7)
[2016-12-02 00:43] LABS: POC - CKMB <1.0 ng/mL (0.0-7.9); POC - TROPONIN <0.05 ng/mL (<=0.05)
[2016-12-02 00:51] LABS: ALBUMIN SERUM 4.2 g/dL (3.5-5.0); BILIRUBIN, DIRECT 0.2 mg/dL (0.0-0.2); BILIRUBIN,INDIRECT 0.6 mg/dL (0.0-0.9); BILIRUBIN,TOTAL 0.8 mg/dL (0.2-2.0); CALCIUM SERUM 9.2 mg/dL (8.4-10.2); GLOM FILT RATE Estimated 65.7 mL/min (>60); POTASSIUM 3.7 mmol/L (3.5-5.1)
[2016-12-02 01:25] LABS: POC - CKMB <1.0 ng/mL (0.0-7.9); POC - TROPONIN <0.05 ng/mL (<=0.05)
== END 2016-12-02 02:11 | disposition home or self-care (01) ==
LOC: CED 23:08
PROVIDERS: Emergency Medicine
DX: R07.89 Other chest pain (principal); R06.02 Shortness of breath; I11.0 Hypertensive heart disease with heart failure; I50.9 Heart failure, unspecified; E11.9 Type 2 diabetes mellitus without complications; J45.909 Unspecified asthma, uncomplicated; J44.9 Chronic obstructive pulmonary disease, unspecified; F41.9 Anxiety disorder, unspecified; F32.9 Major depressive disorder, single episode, unspecified; F17.200 Nicotine dependence, unspecified, uncomplicated; Z98.51 Tubal ligation status; Z79.4 Long term (current) use of insulin; Z79.899 Other long term (current) drug therapy
CPT/HCPCS: 36415; 71010; 80048; 80076; 82553; 84484; 85025; 85610; 85730; 93005; 94644; 96374; 99285; J2930